=== PATIENT | female | born 1980 ===

== ENCOUNTER → 2025-04-07 | Outpatient (REF) | payer BC ==
[2025-04-07 15:09] LABS: RHEUMATOID FACTOR QUANT < 3.5 IU/ML (<14)
[2025-04-07 15:12] LABS: THYROGLOBULIN ANTIBODY 237.0 U/ML (<60.0); THYROID PEROXIDASE ANTIBODY > 1300.0 U/ML (<60.0)
== END ==
LOC: M LAB REF 12:17
PROVIDERS: ATTEND Internal Medicine
DX: M25.50 Pain in unspecified joint (principal); E04.9 Nontoxic goiter, unspecified; I73.00 Raynaud's syndrome without gangrene